=== PATIENT | male | born 1955 | race Hispanic/Latino ===

== ENCOUNTER 2018-10-01 08:40 | Day surgery (SDC) | payer OTHER ==
[~2018-10-01] VITALS: Ht 170.2 cm; Wt 88.5 kg
[2018-10-01] VITALS (8 sets, daily range): BP systolic 80–122; BP diastolic 45–79
[~2018-10-01 08:40] MED LIST: SODIUM CHLORIDE 0.9% 1000ML 1,000 ML IV ONE
[2018-10-01] MEDS ORDERED: METOCLOPRAMIDE 10 MG/2 ML VIAL ONE (10:20)
[2018-10-01] MEDS ORDERED: LEVE10006 PO (10:31)
[2018-10-01] MEDS ORDERED: METF-446 PO (10:31)
[2018-10-01] MEDS ORDERED: EMPA10TA PO (10:39)
[2018-10-01] MEDS ORDERED: INSU100I21 SQ (10:39)
[2018-10-01] MEDS ORDERED: ROSU20TA31 PO (10:39)
[2018-10-01] MEDS ORDERED: ASPI-555 PO (10:39)
[2018-10-01] MEDS ORDERED: PANT40TA PO (10:39)
[2018-10-01] MEDS ORDERED: CHLO25TA3 PO (10:39)
[2018-10-01] MEDS ORDERED: DULA1.5P SQ (10:39)
[2018-10-01] MEDS ORDERED: CLOP75TA14 PO (10:39)
[2018-10-01] MEDS ORDERED: ISOS30TA6 PO (10:39)
[2018-10-01] MEDS ORDERED: MIRT15TA6 PO (10:39)
[2018-10-01] MEDS ORDERED: RAMI10CA69 PO (10:39)
[2018-10-01] MEDS ORDERED: METOCLOPRAMIDE 10 MG/2 ML VIAL IVP SCH (11:00)
[2018-10-01] MEDS ORDERED: PROPOFOL 10 MG/ML 20ML VIAL IV ONE (11:49)
[2018-10-01] MEDS ORDERED: LIDOCAINE HCL-MPF 2% 5ML VIAL ONE (11:49)
[2018-10-01] MEDS ORDERED: EPHEDRINE SULFATE 50 MG/ML AMPULE ONE (12:06)
== END 2018-10-01 13:09 | disposition home or self-care (01) ==
LOC: ENDO 08:40 → DAH 08:40 → ENDO 13:09
PROVIDERS: ATTEND Internal Medicine Gastroenterology
DX: K31.89 Other diseases of stomach and duodenum (principal); K31.7 Polyp of stomach and duodenum; E11.9 Type 2 diabetes mellitus without complications; F32.9 Major depressive disorder, single episode, unspecified; Z86.73 Personal history of transient ischemic attack (TIA), and cerebral infarction without residual deficits; E78.5 Hyperlipidemia, unspecified; K21.9 Gastro-esophageal reflux disease without esophagitis
CPT/HCPCS: 43239; 43251; 82948 ×2; 93005; A4606; J2704; J2765; J3490 ×2; J7030